=== PATIENT | male | born 1955 | race African-American/Black ===

== ENCOUNTER 2017-01-25 18:39 | Emergency (ER) | payer OTHER ==
[~2017-01-25 18:39] MED LIST: AMLO5 PO; ASPI81CH5; LISI20 PO
[2017-01-25 18:40] VITALS: BP 157/80; PULSE 68; RESP 20; TEMP 98; O2SAT 100
--- NOTE | 2017-01-25 19:09 | PD ---
Physical Exam Date Seen by Provider: Jan 25, 2017 Time Seen by Provider: 19:08 Narrative 61-year-old black male presents to emergency department with a four-day astray worsening dental pain with radiation up into his ear. He is concerned that he may have a dental infection. Patient rates his pain a 5-5.5/10. No fever or chills. No runny nose, cough or congestion. No sore throat. Data Data Last Documented VS Vital Signs Date Time Temp Pulse Resp B/P (MAP) Pulse Ox O2 Delivery O2 Flow Rate FiO2 01/25/17 18:40 98.0 68 20 157/80 (105) 100 Room Air [facility] Medical Record Reviewed: No Supervised Visit with STAR: [place] Jan 25, 2017 19:09
[2017-01-25] MEDS ORDERED: IBUP-232 PO (19:15)
[2017-01-25] MEDS ORDERED: PERI0.126 SWISH-SPIT (19:15)
[2017-01-25] MEDS ORDERED: PENI500T PO (19:15)
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
== END 2017-01-25 19:24 | disposition home or self-care (01) ==
LOC: NEPK 18:39
DX: K02.9 Dental caries, unspecified (principal); K05.10 Chronic gingivitis, plaque induced; K08.89 Other specified disorders of teeth and supporting structures; E11.9 Type 2 diabetes mellitus without complications; I10 Essential (primary) hypertension; E78.00 Pure hypercholesterolemia, unspecified; Z72.0 Tobacco use; Z87.39 Personal history of other diseases of the musculoskeletal system and connective tissue; Z86.79 Personal history of other diseases of the circulatory system; Z86.19 Personal history of other infectious and parasitic diseases; Z87.448 Personal history of other diseases of urinary system
CPT/HCPCS: 99283